=== PATIENT | male | born 1935 | race Caucasian/White ===

== ENCOUNTER 2021-02-17 11:31 | Emergency (ER) | payer MEDICARE ==
[~2021-02-17] VITALS: Ht 175.3 cm; Wt 88.2 kg
[2021-02-17 13:27] LABS: BASOPHILS % (AUTO) 0.2 % (0-1); EOSINOPHILS % (AUTO) 0 % (0-6); HEMOGLOBIN 15.4 g/dl (14.0-17.9); LYMPHOCYTES # (AUTO) 0.4 X10'3 (1.1-4.8); LYMPHOCYTES % (AUTO) 1.9 % (21-51); MEAN CORPUSCULAR HEMOGLOBIN 30.2 PG (27.0-31.0); MEAN CORPUSCULAR HGB CONC 32.7 g/dL (33.0-36.5); MEAN CORPUSCULAR VOLUME 92.5 FL (78-98); MEAN PLATELET VOLUME 8.6 FL (7.4-10.4); MONOCYTES # (AUTO) 1.2 X10'3 (0-0.9); MONOCYTES % (AUTO) 5.1 % (2-12); NEUTROPHILS # (AUTO) 21.1 X10'3 (1.8-7.7); NEUTROPHILS % (AUTO) 92.8 % (42-75); PLATELET COUNT 294 X10'3 (140-440); RED BLOOD COUNT 5.08 X10'6 (4.70-6.10); RED CELL DISTRIBUTION WIDTH 13.6 % (11.5-14.5); WHITE BLOOD COUNT 22.8 X10'3 (4.5-11.0)
[2021-02-17 13:33] LABS: D-DIMER 2.07 MG/L FEU (0-0.50)
[2021-02-17 13:37] LABS: ALANINE AMINOTRANSFERASE 66 U/L (12-78); ALBUMIN 2.4 G/DL (3.4-5.0); ALBUMIN/GLOBULIN RATIO 0.6 (1.1-1.5); ALKALINE PHOSPHATASE 59 IU/L (46-116); ANION GAP 13 (8-16); ASPARTATE AMINO TRANSFERASE 25 U/L (10-37); BILIRUBIN,TOTAL 0.3 MG/DL (0.1-1.0); BLOOD UREA NITROGEN 39 MG/DL (7-18); BUN/CREATININE RATIO 26.7 (5.4-32.0); CALCIUM 8.5 MG/DL (8.5-10.1); CHLORIDE 102 MMOL/L (99-107); CREATININE 1.46 MG/DL (0.60-1.10); GLUCOSE 347 MG/DL (70-104); POTASSIUM 4.4 MMOL/L (3.5-5.1); SODIUM 136 MMOL/L (135-145); TOTAL CARBON DIOXIDE 21.3 MMOL/L (24-32); TOTAL PROTEIN 6.7 G/DL (6.4-8.2); eGFR 46 ML/MIN
[2021-02-17 13:44] LABS: C-REACTIVE PROTEIN 2.17 MG/DL (0.0-0.5); LACTATE DEHYDROGENASE 267 U/L (85-227)
[2021-02-17] MEDS ORDERED: CefTRIAXone/D5W-Rocephin 1gm 50 ML IV ONE (14:30)
[2021-02-17] MEDS ORDERED: azithromycin/NS 500mg/250ml 250 ML IV ONE (14:30)
[2021-02-17] MEDS ORDERED: normal saline 1000ml 1,000 ML IV ONE ×2 (15:25)
--- NOTE | 2021-02-17 16:56 | NUR ---
TC FROM STATING THAT SHE DOES NOT WANT ANY TREATMENTS DONE ON HER UNLESS IT IS DISCUSSED WITH HER FIRST. MESSAGE WILL BE RELAYED TO PROVIDER. PATIENT IS RESTING IN BED WITH IV FLUIDS INFUSING WELL AND NO COMPLAINTS AT THIS TIME.
[2021-02-17 18:47] VITALS: BP 143/75
[2021-02-17] MEDS ORDERED: LEVO500T89 PO (18:47)
== END 2021-02-17 19:14 | disposition home or self-care (01) ==
LOC: ER 11:32
DX: U07.1 COVID-19 (principal); J12.82 Pneumonia due to coronavirus disease 2019; R06.02 Shortness of breath; R53.1 Weakness; Z79.2 Long term (current) use of antibiotics
CPT/HCPCS: 36415; 71045; 80053; 83605; 83615; 83880; 84145; 84484; 85025; 85379; 86140; 87040; 87635; 93005; 96365; 96366; 96368; 99285; C9803; J0456; J0696; J7030

== ENCOUNTER 2021-02-19 09:38 | Inpatient (IN) | payer MEDICARE ==
[~2021-02-19] VITALS: Ht 172.7 cm; Wt 88.2 kg
[~2021-02-19 09:38] MED LIST: LEVO500T89 PO
[2021-02-19 11:35] LABS: ALBUMIN 2.3 G/DL (3.4-5.0); ANION GAP 10 (8-16); BLOOD UREA NITROGEN 23 MG/DL (7-18); CALCIUM 8.6 MG/DL (8.5-10.1); CHLORIDE 101 MMOL/L (99-107); CREATININE 1.21 MG/DL (0.60-1.10); GLUCOSE 93 MG/DL (70-104); POTASSIUM 4.2 MMOL/L (3.5-5.1); SODIUM 136 MMOL/L (135-145); eGFR 57 ML/MIN
[2021-02-19 11:41] LABS: BASOPHILS % (AUTO) 0.1 % (0-1); EOSINOPHILS # (AUTO) 0.1 X10'3 (0-0.9); EOSINOPHILS % (AUTO) 0.6 % (0-6); HEMOGLOBIN 15.9 g/dl (14.0-17.9); LYMPHOCYTES # (AUTO) 1.1 X10'3 (1.1-4.8); LYMPHOCYTES % (AUTO) 6.6 % (21-51); MEAN CORPUSCULAR HEMOGLOBIN 29.9 PG (27.0-31.0); MEAN CORPUSCULAR HGB CONC 32.4 g/dL (33.0-36.5); MEAN CORPUSCULAR VOLUME 92.5 FL (78-98); MEAN PLATELET VOLUME 8.4 FL (7.4-10.4); MONOCYTES # (AUTO) 0.6 X10'3 (0-0.9); MONOCYTES % (AUTO) 3.9 % (2-12); NEUTROPHILS # (AUTO) 14.8 X10'3 (1.8-7.7); NEUTROPHILS % (AUTO) 88.8 % (42-75); PLATELET COUNT 238 X10'3 (140-440); RED CELL DISTRIBUTION WIDTH 13.6 % (11.5-14.5); WHITE BLOOD COUNT 16.6 X10'3 (4.5-11.0)
[2021-02-19] MEDS ORDERED: dexamethasone sod phosphate 10mg/ml inj IV STA (12:29)
[2021-02-19] MEDS ORDERED: CASIRIVIMAB/IMDEVIMAB inject. 10 ML in normal saline 100ml IV soln 100 ML IV ONE (12:30)
[2021-02-19] MEDS ORDERED: ROSU10TA28 PO (12:40)
[2021-02-19] MEDS ORDERED: MONT10TA32 PO (12:40)
[2021-02-19 12:52] LABS: PLATELET ESTIMATE NORMAL; TOTAL CELLS COUNTED 100
[2021-02-19] MEDS ORDERED: diphenhydrAMINE 25mg capsule PO PRN (16:15)
[2021-02-19] MEDS ORDERED: magnesium hydroxide 30ml (MOM) UD suspension PO PRN (16:15)
[2021-02-19] MEDS ORDERED: magnesium 4gm in 100ml NS 100 ML IV PRN (16:15)
[2021-02-19] MEDS ORDERED: HYDROcodone/acetaminophen 10/325mg tab PO PRN (16:15)
[2021-02-19] MEDS ORDERED: bisacodyl 10mg suppository rectal RC PRN (16:15)
[2021-02-19] MEDS ORDERED: ondansetron/PF 4mg/2ml inj IV PRN (16:15)
[2021-02-19] MEDS ORDERED: potassium Cl 20 mEq SR tablet PO PRN ×2 (16:15)
[2021-02-19] MEDS ORDERED: ALBUTEROL INHALER 1 PUFF/90 MCG INHALER IH PRN (16:15)
[2021-02-19] MEDS ORDERED: magnesium Cl slow-release 64mg tablet PO PRN (16:15)
[2021-02-19] MEDS ORDERED: magnesium 2GM in 50ml NS 50 ML IV PRN (16:15)
[2021-02-19] MEDS ORDERED: acetaminophen 325mg tablet PO PRN ×2 (16:15)
[2021-02-19] MEDS ORDERED: enoxaparin 40mg/0.4ml syringe SUBCUT SCH (16:15)
[2021-02-19] MEDS ORDERED: HYDROcodone/acetaminophen 5mg/325mg tablet PO PRN (16:15)
[2021-02-19] MEDS ORDERED: mag hydrox/Alum hydrox/simeth 30ml oral suspension PO PRN (16:15)
[2021-02-19] MEDS ORDERED: morphine 2 MG/ML inj. syringe IV PRN ×2 (16:15)
[2021-02-19] MEDS ORDERED: acetaminophen 650mg rectal suppository RC PRN (16:15)
[2021-02-19] MEDS ORDERED: potassium Cl 40MEQ/1/2NS 520ml 520 ML IV PRN ×2 (16:15)
[2021-02-19 16:40] LABS: HEMOGLOBIN A1C 6.7 % (4.5-6.2)
[2021-02-19] MEDS ORDERED: iohexol 350MG/ML 100ml bottle IV ONE (16:45)
[2021-02-19] MEDS: CefTRIAXone/D5W-Rocephin 1gm 50 ML IV SCH (17:01)
[2021-02-19] MEDS: azithromycin 250mg tablet PO SCH (17:02)
[2021-02-19] MEDS: normal saline 1000ml 1,000 ML IV SCH (17:02)
[2021-02-19 18:07] LABS: CLARITY,URINE CLEAR (Clear); COLOR,URINE YELLOW (Yellow); GLUCOSE, URINE NEGATIVE (Neg); KETONES,URINE NEGATIVE (Neg); LEUKOCYTE ESTERASE ,URINE NEGATIVE (Neg); NITRITES, URINE NEGATIVE (Neg); OCCULT BLOOD,URINE SMALL (Neg); PROTEIN,URINE TRACE mg/dl (Neg); UROBILINOGEN,URINE 0.2 E.U/dL (0.2-1.0)
[2021-02-19 18:10] LABS: UA COLLECTION TYPE URINAL
[2021-02-19 18:18] LABS: MUCUS STRANDS FEW /LPF (Neg); SQUAMOUS EPITHELIAL CELL,UR FEW /LPF (FEW)
[2021-02-19 18:19] LABS: BACTERIA,URINE FEW /HPF (Neg); RBC,URINE 0-2 /HPF (0-2); WBC,URINE 0-4 /HPF (0-4)
[2021-02-19] MEDS ORDERED: heparin 10,000 units/1 ML INJ IV PRN (18:25)
[2021-02-19] MEDS ORDERED: heparin 10,000 units/1 ML INJ IV ONE (18:25)
[2021-02-19 19:09] LABS: C-REACTIVE PROTEIN 19.79 MG/DL (0.0-0.5); LACTATE DEHYDROGENASE 484 U/L (85-227)
[2021-02-19] MEDS: dexamethasone 4mg/ml inj IV SCH (19:56)
[2021-02-19] MEDS: docusate sod 100mg capsule PO SCH (19:57)
[2021-02-19] MEDS: K and/or MAG REPLACEMENT MC SCH (19:57)
[2021-02-19 20:22] LABS: PARTIAL THROMBOPLASTIN TIME 33 SECONDS (22-32)
[2021-02-19 20:44] LABS: D-DIMER > 35.20 MG/L FEU (0-0.50)
[2021-02-19] MEDS: heparin 25,000 UNIT/250ml bag 250 ML IV SCH (21:12)
--- NOTE | 2021-02-19 21:53 | NUR ---
CALLED REPORT TO FLOOR.
[2021-02-19 22:00] VITALS: BP 101/47
[2021-02-20 05:04] LABS: BASOPHILS % (AUTO) 0.1 % (0-1); EOSINOPHILS % (AUTO) 0.1 % (0-6); HEMATOCRIT 42.5 % (42.0-52.0); HEMOGLOBIN 13.8 g/dl (14.0-17.9); LYMPHOCYTES # (AUTO) 0.5 X10'3 (1.1-4.8); LYMPHOCYTES % (AUTO) 3.9 % (21-51); MEAN CORPUSCULAR HEMOGLOBIN 30.1 PG (27.0-31.0); MEAN CORPUSCULAR HGB CONC 32.6 g/dL (33.0-36.5); MEAN CORPUSCULAR VOLUME 92.3 FL (78-98); MEAN PLATELET VOLUME 8.2 FL (7.4-10.4); MONOCYTES # (AUTO) 0.3 X10'3 (0-0.9); MONOCYTES % (AUTO) 2.1 % (2-12); NEUTROPHILS # (AUTO) 11.9 X10'3 (1.8-7.7); NEUTROPHILS % (AUTO) 93.8 % (42-75); PLATELET COUNT 189 X10'3 (140-440); RED CELL DISTRIBUTION WIDTH 13.5 % (11.5-14.5); WHITE BLOOD COUNT 12.7 X10'3 (4.5-11.0)
[2021-02-20 05:24] LABS: ALANINE AMINOTRANSFERASE 56 U/L (12-78); ALBUMIN 1.7 G/DL (3.4-5.0); ALBUMIN/GLOBULIN RATIO 0.4 (1.1-1.5); ALKALINE PHOSPHATASE 77 IU/L (46-116); ANION GAP 7 (8-16); ASPARTATE AMINO TRANSFERASE 16 U/L (10-37); BILIRUBIN,TOTAL 0.4 MG/DL (0.1-1.0); BLOOD UREA NITROGEN 27 MG/DL (7-18); BUN/CREATININE RATIO 20.3 (5.4-32.0); CALCIUM 7.8 MG/DL (8.5-10.1); CHLORIDE 106 MMOL/L (99-107); CHOL/HDL RATIO 2.1 (0.00-4.99); CHOLESTEROL 103 MG/DL (0-200); CREATININE 1.33 MG/DL (0.60-1.10); GLUCOSE 199 MG/DL (70-104); HDL CHOLESTEROL 50 MG/DL (35-60); LACTATE DEHYDROGENASE 356 U/L (85-227); LDL CHOLESTEROL 32 MG/DL (50-100); MAGNESIUM 2.4 MG/DL (1.5-2.4); PHOSPHORUS 4.5 MG/DL (2.3-4.5); POTASSIUM 4.3 MMOL/L (3.5-5.1); SODIUM 138 MMOL/L (135-145); TOTAL CARBON DIOXIDE 25.2 MMOL/L (24-32); TOTAL PROTEIN 5.8 G/DL (6.4-8.2); TRIGLYCERIDES 48 MG/DL (20-135); eGFR 51 ML/MIN
[2021-02-20 05:34] LABS: D-DIMER 13.27 MG/L FEU (0-0.50)
[2021-02-20 05:51] LABS: C-REACTIVE PROTEIN 28.84 MG/DL (0.0-0.5)
[2021-02-20 06:00] VITALS: BP 130/52
[2021-02-20] MEDS: heparin 25,000 UNIT/250ml bag 250 ML IV SCH ×3 (07:09→18:05)
--- NOTE | 2021-02-20 07:19 | NUR ---
PAGER ID: [phone] MESSAGE: Rebecca hurley 2B ptt [phone] per protocol hep off until [phone] Jenn [phone]
[2021-02-20] MEDS: K and/or MAG REPLACEMENT MC SCH ×2 (08:00→20:00)
--- NOTE | 2021-02-20 10:46 | NUR ---
called for update on patient. Patient is aware & gave permission. is asking if there will be a repeat CT at some point to recheck lung emboli?
[2021-02-20] MEDS: CefTRIAXone/D5W-Rocephin 1gm 50 ML IV SCH (11:13)
[2021-02-20] MEDS: dexamethasone 4mg/ml inj IV SCH ×2 (11:14→20:20)
[2021-02-20] MEDS: atorvastatin 20mg tablet PO SCH (11:14)
[2021-02-20] MEDS: docusate sod 100mg capsule PO SCH ×2 (11:14→20:21)
[2021-02-20] MEDS: montelukast 10mg tablet PO SCH (11:14)
[2021-02-20] MEDS: azithromycin 250mg tablet PO SCH (11:15)
[2021-02-20 12:00] VITALS: BP 130/52
--- NOTE | 2021-02-20 14:35 | NUR ---
Malnutrition screen: Per MST pt reports 2-13lb weight loss and decreased appetite. Attempted to TC w/ RN regarding physical appearance and appetite, though unable to reach them. Pt able to eat greater than 75% of meals today. Pending physical assessment. Unable to fully assess pt for malnutrition given limited information at this time, will continue to follow. Addendum: 02/20/21 at [address] Amended: Links added.
[2021-02-20 18:00] VITALS: BP 136/77
[2021-02-20] MEDS: lactobacillus rhamnosus 10,000 MMU CELLS/CAPSULE PO SCH (20:21)
[2021-02-21 01:52] LABS: BASOPHILS % (AUTO) 0 % (0-1); EOSINOPHILS # (AUTO) 0.1 X10'3 (0-0.9); EOSINOPHILS % (AUTO) 0.5 % (0-6); HEMATOCRIT 39.5 % (42.0-52.0); HEMOGLOBIN 13.2 g/dl (14.0-17.9); LYMPHOCYTES # (AUTO) 0.6 X10'3 (1.1-4.8); LYMPHOCYTES % (AUTO) 3.1 % (21-51); MEAN CORPUSCULAR HEMOGLOBIN 30.4 PG (27.0-31.0); MEAN CORPUSCULAR HGB CONC 33.4 g/dL (33.0-36.5); MEAN CORPUSCULAR VOLUME 91.2 FL (78-98); MEAN PLATELET VOLUME 8.3 FL (7.4-10.4); MONOCYTES # (AUTO) 0.7 X10'3 (0-0.9); MONOCYTES % (AUTO) 3.5 % (2-12); NEUTROPHILS # (AUTO) 19.4 X10'3 (1.8-7.7); NEUTROPHILS % (AUTO) 92.9 % (42-75); PLATELET COUNT 189 X10'3 (140-440); RED BLOOD COUNT 4.33 X10'6 (4.70-6.10); RED CELL DISTRIBUTION WIDTH 13.3 % (11.5-14.5); WHITE BLOOD COUNT 20.9 X10'3 (4.5-11.0)
[2021-02-21 01:58] LABS: ALANINE AMINOTRANSFERASE 41 U/L (12-78); ALBUMIN 1.7 G/DL (3.4-5.0); ALBUMIN/GLOBULIN RATIO 0.4 (1.1-1.5); ALKALINE PHOSPHATASE 69 IU/L (46-116); ANION GAP 11 (8-16); ASPARTATE AMINO TRANSFERASE 13 U/L (10-37); BILIRUBIN,TOTAL 0.4 MG/DL (0.1-1.0); BLOOD UREA NITROGEN 34 MG/DL (7-18); BUN/CREATININE RATIO 28.1 (5.4-32.0); C-REACTIVE PROTEIN 15.96 MG/DL (0.0-0.5); CHLORIDE 105 MMOL/L (99-107); CREATININE 1.21 MG/DL (0.60-1.10); GLUCOSE 257 MG/DL (70-104); LACTATE DEHYDROGENASE 215 U/L (85-227); MAGNESIUM 2.3 MG/DL (1.5-2.4); PHOSPHORUS 3.6 MG/DL (2.3-4.5); POTASSIUM 4.4 MMOL/L (3.5-5.1); SODIUM 138 MMOL/L (135-145); TOTAL CARBON DIOXIDE 22.4 MMOL/L (24-32); TOTAL PROTEIN 5.5 G/DL (6.4-8.2); eGFR 57 ML/MIN
[2021-02-21 02:00] VITALS: BP 129/72
[2021-02-21 02:02] LABS: D-DIMER 5.82 MG/L FEU (0-0.50)
[2021-02-21 06:00] VITALS: BP 126/60
--- NOTE | 2021-02-21 06:45 | NUR ---
Patient in room COVID 02. I have received report from EUGENIA Pond and had the opportunity to ask questions and assume patient care.
[2021-02-21] MEDS: K and/or MAG REPLACEMENT MC SCH ×2 (08:00→20:00)
[2021-02-21] MEDS: dexamethasone 4mg/ml inj IV SCH ×2 (09:00→21:12)
[2021-02-21] MEDS: montelukast 10mg tablet PO SCH (09:00)
[2021-02-21] MEDS: azithromycin 250mg tablet PO SCH (09:00)
[2021-02-21] MEDS: CefTRIAXone/D5W-Rocephin 1gm 50 ML IV SCH (09:01)
[2021-02-21] MEDS: lactobacillus rhamnosus 10,000 MMU CELLS/CAPSULE PO SCH ×2 (09:01→21:11)
[2021-02-21] MEDS: docusate sod 100mg capsule PO SCH ×2 (09:01→21:11)
[2021-02-21] MEDS: atorvastatin 20mg tablet PO SCH (09:01)
[2021-02-21 10:00] VITALS: BP 128/63
--- NOTE | 2021-02-21 11:08 | NUR ---
f/u 02/21: TC w/ RN, pt does not have visible signs of wasting and has not reported any decrease in appetite; was able to eat 100% of breakfast today. No edema per physical assessment. At this time, pt does not meet minimum 2 criteria for malnutrition, will continue to monitor. Addendum: 02/21/21 at [address] Amended: Links added.
[2021-02-21] MEDS: normal saline 1000ml 1,000 ML IV SCH (16:15)
[2021-02-21] MEDS: heparin 25,000 UNIT/250ml bag 250 ML IV SCH (17:12)
--- NOTE | 2021-02-21 18:40 | NUR ---
Problems reprioritized. Patient report given, questions answered & plan of care reviewed with Rosette RN.
[2021-02-21 19:45] VITALS: BP 128/62
[2021-02-21 23:15] VITALS: BP 128/61
[2021-02-22 03:00] VITALS: BP 114/57
[2021-02-22] MEDS: lactobacillus rhamnosus 10,000 MMU CELLS/CAPSULE PO SCH (08:00)
[2021-02-22] MEDS: K and/or MAG REPLACEMENT MC SCH (08:00)
[2021-02-22 09:08] LABS: BASOPHILS # (AUTO) 0.1 X10'3 (0-0.2); BASOPHILS % (AUTO) 0.8 % (0-1); EOSINOPHILS % (AUTO) 0 % (0-6); HEMATOCRIT 39.9 % (42.0-52.0); HEMOGLOBIN 12.8 g/dl (14.0-17.9); LYMPHOCYTES # (AUTO) 0.5 X10'3 (1.1-4.8); MEAN CORPUSCULAR HEMOGLOBIN 29.9 PG (27.0-31.0); MEAN CORPUSCULAR HGB CONC 32.1 g/dL (33.0-36.5); MEAN CORPUSCULAR VOLUME 93.2 FL (78-98); MEAN PLATELET VOLUME 9.4 FL (7.4-10.4); MONOCYTES # (AUTO) 0.7 X10'3 (0-0.9); MONOCYTES % (AUTO) 4.2 % (2-12); NEUTROPHILS # (AUTO) 15.7 X10'3 (1.8-7.7); PLATELET COUNT 214 X10'3 (140-440); RED BLOOD COUNT 4.28 X10'6 (4.70-6.10); RED CELL DISTRIBUTION WIDTH 12.9 % (11.5-14.5); WHITE BLOOD COUNT 17.1 X10'3 (4.5-11.0)
[2021-02-22] MEDS: dexamethasone 4mg/ml inj IV SCH (09:30)
[2021-02-22] MEDS: atorvastatin 20mg tablet PO SCH (09:31)
[2021-02-22] MEDS: azithromycin 250mg tablet PO SCH (09:31)
[2021-02-22] MEDS: CefTRIAXone/D5W-Rocephin 1gm 50 ML IV SCH (09:31)
[2021-02-22] MEDS: montelukast 10mg tablet PO SCH (09:31)
[2021-02-22] MEDS: docusate sod 100mg capsule PO SCH (09:31)
[2021-02-22 09:35] LABS: ALANINE AMINOTRANSFERASE 41 U/L (12-78); ALBUMIN 1.9 G/DL (3.4-5.0); ALBUMIN/GLOBULIN RATIO 0.5 (1.1-1.5); ALKALINE PHOSPHATASE 75 IU/L (46-116); ANION GAP 8 (8-16); ASPARTATE AMINO TRANSFERASE 11 U/L (10-37); BILIRUBIN,TOTAL 0.5 MG/DL (0.1-1.0); BLOOD UREA NITROGEN 35 MG/DL (7-18); BUN/CREATININE RATIO 31.8 (5.4-32.0); C-REACTIVE PROTEIN 5.47 MG/DL (0.0-0.5); CHLORIDE 105 MMOL/L (99-107); GLUCOSE 219 MG/DL (70-104); LACTATE DEHYDROGENASE 219 U/L (85-227); MAGNESIUM 2.3 MG/DL (1.5-2.4); PHOSPHORUS 4.3 MG/DL (2.3-4.5); POTASSIUM 4.3 MMOL/L (3.5-5.1); SODIUM 137 MMOL/L (135-145); TOTAL CARBON DIOXIDE 23.9 MMOL/L (24-32); TOTAL PROTEIN 5.7 G/DL (6.4-8.2); eGFR 64 ML/MIN
[2021-02-22 09:35] LABS: D-DIMER 3.58 MG/L FEU (0-0.50)
--- NOTE | 2021-02-22 11:15 | NUR ---
PAGED DR ABOUT DISCHARGE PAGER ID: [phone] MESSAGE: RAJIV FUCHS 2B: PATIENT ASKING ABOUT DISCHARGE. THANKS JEREMY [phone]
--- NOTE | 2021-02-22 13:28 | NUR ---
O2 Sat at rest on room air:_89__% If below 89%: Recovery O2 Sat at rest on _91__LPM:__2_%:___% via (mask/nasal cannula, etc..) No further documentation is necessary. If O2 Sat did not drop below 89% on room air,ambulate patient on room air. O2 Sat while ambulating on room air:___% Recovery O2 Sat while ambulating on ___LPM:___% No further documentation is necessary. If patient does not drop below 89% while ambulating, he/she does not qualify for home O2.
[2021-02-22] MEDS ORDERED: APIX5TAB3 PO (14:12)
[2021-02-22] MEDS ORDERED: LEVO500T89 PO (14:12)
[2021-02-22] MEDS ORDERED: PRED10TA23 PO (14:15)
--- NOTE | 2021-02-22 14:17 | NUR ---
O2 Sat at rest on room air:___% If below 89%: Recovery O2 Sat at rest on ___LPM:___%:___% via (mask/nasal cannula, etc..) No further documentation is necessary. If O2 Sat did not drop below 89% on room air,ambulate patient on room air. O2 Sat while ambulating on room air:_88__% Recovery O2 Sat while ambulating on _92__LPM:_2__% No further documentation is necessary. If patient does not drop below 89% while ambulating, he/she does not qualify for home O2.
--- NOTE | 2021-02-22 17:20 | NUR ---
PATIENT STABLE AND APPROPRIATE FOR DISCHARGE, IV TAKEN OUT, TELE REMOVED, O2 DELIVERED AND SENT WITH PATIENT, EDUCATION GIVEN, NEW MEDS CALLED INTO PREFERRED PHARMACY, DISCOUNT CARD GIVEN FOR BLOOD THINNER, ALL BELONGINGS SENT WITH PATIENT, PATIENT TAKEN TO LOBBY BY WHEELCHAIR TO AN AWAITING CAR WHERE WILL TAKE PATIENT HOME
[2021-02-22] MEDS ORDERED: apixaban 5mg tablet PO SCH (20:00)
[2021-03-01] MEDS ORDERED: apixaban 5mg tablet PO SCH (20:00)
== END 2021-02-22 17:00 | disposition home health service (06) | DRG 177 ==
LOC: ER 09:38 → ED HOLD 16:20 → COVID IP 22:00
PROVIDERS: ADMIT Family Medicine; ATTEND Family Medicine
PROC: B32T1ZZ Computerized Tomography (CT Scan) of Left Pulmonary Artery using Low Osmolar Contrast (ICD-10-PCS; principal; 2021-02-19)
PROC: B3201ZZ Computerized Tomography (CT Scan) of Thoracic Aorta using Low Osmolar Contrast (ICD-10-PCS; 2021-02-19)
PROC: B32S1ZZ Computerized Tomography (CT Scan) of Right Pulmonary Artery using Low Osmolar Contrast (ICD-10-PCS; 2021-02-19)
DX: U07.1 COVID-19 (principal); J12.82 Pneumonia due to coronavirus disease 2019; J96.01 Acute respiratory failure with hypoxia; I26.99 Other pulmonary embolism without acute cor pulmonale; J15.9 Unspecified bacterial pneumonia; Z66 Do not resuscitate; E78.5 Hyperlipidemia, unspecified; Z79.899 Other long term (current) drug therapy
CPT/HCPCS: 36415; 71045; 71275; 80048; 80053; 80061; 81001; 83036; 83605; 83615; 83735; 83880; 84100; 84145; 84443; 84484; 85007; 85025; 85379; 85610; 85730; 86140; 87040; 87081; 87635; 93005; 93306; 94667; 94760; 96365; 96366; 96368; 96374; 97110; 97161; 97530; 99285; C9803; G0378; J0456; J0696; J1100; J1644; J1650; J7030; Q9967